=== PATIENT | female | born 1985 | race Caucasian/White ===

== ENCOUNTER 2017-12-27 17:23 | Emergency (ER) | payer BC, OTHER ==
[2017-12-27] MEDS ORDERED: Ondansetron HCl/PF 4 MG/2 ML Vial ONE (18:04)
[2017-12-27] MEDS ORDERED: Famotidine In NaCl 20 mg/50 ml Premix Bag ONE (18:04)
[2017-12-27 18:16] LABS: #Basophils 0.1 thou/uL (0.0-0.2); #Eosinphils 0.3 thou/uL (0.0-0.7); #Lymphocytes 2.7 thou/uL (1.20-3.40); #Neutrophils 7.2 thou/uL (1.40-6.50); %Basophils 0.7 % (0.0-1.0); %Eosinophils 2.8 % (0.0-10.0); %Lymphocytes 23.7 % (21.0-51.0); %Monocytes 8.9 % (0.0-10.0); %Neutrophils 63.8 % (42.0-75.0); Eosinophils 7 % (0-10); Hemoglobin 16.5 g/dL (12.0-16.0); Lymphocytes 25 % (21-51); MDiff Complete? YES; Mean Corpuscular Hemoglobin 31.7 pg (27.0-31.0); Mean Corpuscular Volume 93.2 fL (78.0-98.0); Mean Platelet Volume 9.8 fL (7.4-10.4); Monocytes 11 % (0-10); Neutrophil 57 % (42-75); Platelet Count 177 thou/uL (130-400); RBC Distribution Width 11.8 % (11.5-14.5); Red Blood Cell (RBC) Count 5.21 mill/uL (4.20-5.40); White Blood Cell (WBC) Count 11.3 thou/uL (4.8-10.8)
[2017-12-27 18:19] LABS: ALT (SGPT) Less than 7 U/L (8-55); AST (SGOT) 10 U/L (5-34); Albumin 4.8 g/dL (3.5-5.0); Alkaline Phosphatase 69 U/L (40-150); Anion Gap 17 mmol/L (10-20); BUN (Urea Nitrogen) 9 mg/dL (7.0-18.7); Bilirubin, Total 1.1 mg/dL (0.2-1.2); Calc. Creatinine Clearance 0 mL/min (70-130); Calcium 9.9 mg/dL (7.8-10.44); Carbon Dioxide 25 mmol/L (22-29); Chloride 103 mmol/L (98-107); Estimated GFR-MDRD Greater than 90; Glucose 89 mg/dL (70-105); Lipase 4 U/L (8-78); Potassium 3.5 mmol/L (3.5-5.1); Protein, Total 7.8 g/dL (6.0-8.3); Sodium 141 mmol/L (136-145)
[2017-12-27] MEDS ORDERED: Lidocaine Viscous Sol 2% 15 ml UD Cup ONE (18:45)
[2017-12-27] MEDS ORDERED: Mag-Al Plus 1200 MG/1200 MG/120 MG/30 ML UDCUP ONE (18:45)
== END 2017-12-27 19:10 | disposition home or self-care (01) ==
LOC: BURERS 17:23
DX: K27.9 Peptic ulcer, site unspecified, unspecified as acute or chronic, without hemorrhage or perforation (principal); F17.210 Nicotine dependence, cigarettes, uncomplicated
CPT/HCPCS: 80053; 83690; 85025; 96374; 96375; J2405

== ENCOUNTER 2019-04-01 15:40 | Emergency (ER) | payer OTHER, SELFPAY ==
[2019-04-01] MEDS ORDERED: Adacel (T-DAP) 0.5 ML SYRINGE ONE (15:51)
[2019-04-01] MEDS ORDERED: Bacitracin 1 PK ONE (15:51)
== END 2019-04-01 16:15 | disposition home or self-care (01) ==
LOC: BURERS 15:40
DX: S30.811A Abrasion of abdominal wall, initial encounter (principal); F17.210 Nicotine dependence, cigarettes, uncomplicated; Z23 Encounter for immunization; W22.8XXA Striking against or struck by other objects, initial encounter
CPT/HCPCS: 90471; 90715